=== PATIENT | female | born 1990 ===

== ENCOUNTER → 2023-08-20 03:57 | Outpatient (CLI) | payer OTHER, SELFPAY ==
--- NOTE | 2023-08-20 | DI.US_ITS ---
Exam(s) US BREAST LT COMPLETE US BREAST RT COMPLETE MG MAMMO SCREENING 60 MIN DUR EXAM: MG MAMMO SCREENING 60 MIN DUR CLINICAL HISTORY: C50.912 Hormone recptor + Ca of left breast, Screening, E28.39. TECHNIQUE: Bilateral full field digital Mammography of the bothbreasts with Tomosynthesis followed by spot compression views of the right breast and bilateral breast ultrasound. COMPARISON: US US BREAST RT COMPLETE from 08/20/2023 US US BREAST LT COMPLETE from 08/20/2023. Reports from prior exam performed in [facility] are available. Images are not available. FINDINGS: Mammography/Tomosynthesis: Masses: Increased density in the superior right breast on the MLO view question area nodularity in th e lateral right breast on the CC view. Spot compression views were performed which dispersed the tis jesi. Architectural Distortion: Surgical clips in the lower inner quadrant of the left breast. Post lumpec juju scarring in this area. Microcalcifictions: No suspicious pleomorphic-type are seen. Skin Thickening/Nipple Retraction: None. Right breast US: Echotexture: Normal appearance of the glandular tissue. Shadowing: No suspicious foci. Cyst: None. Solid lesions: None seen. Ductal dilation: None. Left breast ultrasound: Echotexture: Normal appearance of the glandular tissue. Shadowing: scarring noted in the lower inner quadrant of the left breast corresponding to lumpectom y 8. Cyst: None. Solid lesions: None seen. Ductal dilation: None. IMPRESSION: 1. Right breast: No evidence of malignancy is noted. 2. Left breast: No evidence of malignancy is noted. 3. Unless there is more urgent need, follow-up screening mammography is recommended, as per [employer] guidelines. 4. The findings were discussed with the patient on the date of the examination. BI-RADS Category 2 - Benign Findings Breast Density - Category C - Heterogeneously dense A mammogram that demonstrates density of C or D indicates the patient's breast tissue is dense. Dense breast tissue is very common and is not abnormal, but dense breast tissue can make it harder to find cancer on a mammogram. Also, dense breast tissue may increase their breast cancer risk. This informa tion about the result of the mammogram report was provided to the patient to raise their awareness. U se this report when you speak with the patient about their risks for breast cancer, which includes th eir family history. At that time, you may recommend for more screening tests (Ultrasound or MRI) as t hey might be useful based on their risk. A negative radiographic report should not delay biopsy if a dominant or clinically suspicious mass is present. Up to ten percent of cancers are not identified on mammography. A negative report may reinforce clinical impression. Adenosis and dense breasts may obscure an underlying neoplasm. False positive reports average 6 to 10%. Patient will receive a letter notifying them of these results.
== END ==
PROVIDERS: Visit Provider Internal Medicine Hematology & Oncology
DX: Z12.31 Encounter for screening mammogram for malignant neoplasm of breast (principal); C50.912 Malignant neoplasm of unspecified site of left female breast
CPT/HCPCS: 76642; 77063; 77067